=== PATIENT | female | born 1980 | race Caucasian/White ===

== ENCOUNTER 2020-12-23 17:27 | Emergency (ER) | payer OTHER ==
[~2020-12-23] VITALS: Ht 167.6 cm; Wt 90.7 kg
[2020-12-23] MEDS ORDERED: METHOCARBAMOL500 M2 PO (19:07)
[2020-12-23 19:15] VITALS: BP 137/83
--- NOTE | 2020-12-24 07:11 | EKG ---
[address] [address] ELECTROCARDIOGRAM REPORT Name: LILIBETH VELA Room #: DEP Bertrand#: [id number] Admission: 12/23/20 Attend Phys: Discharge: 12/23/20 Date of : 84 Report #: [id number] [facility] ED Test Date: 2020-12-23 Test Time: 17:38:09 Pat Name: LILIBETH VELA Department: Room: Gender: F Pet Trainer: ANDREA : 1980 Requested By: Sofie Arnold Order Number: [id number] MD: Ochoa Luna Measurements Intervals [place] Rate: 66 P: 56 MI: 193 QRS: 34 QRSD: 98 T: 35 QT: 423 QTc: 444 Interpretive Statements Sinus rhythm No previous ECG available for comparison Electronically Signed On 12-24-2020 7:11:08 CDT by Ochoa Luna [email or web address] <ELECTRONICALLY SIGNED> By: Ochoa Luna MD, [facility] 12/24/20 0711 [id number] 1738 Ochoa Luna MD, FACC /EPI
== END 2020-12-23 19:16 | disposition home or self-care (01) ==
LOC: ER 17:27
DX: R07.89 Other chest pain (principal); Z88.1 Allergy status to other antibiotic agents; Z88.0 Allergy status to penicillin